=== PATIENT | female | born 1990 | race Caucasian/White ===

== ENCOUNTER 2018-07-12 16:57 | Emergency (ER) | payer MEDICAID ==
[~2018-07-12] VITALS: Ht 167.6 cm; Wt 70.3 kg
[~2018-07-12 16:57] MED LIST: RANI25TA
[2018-07-12 17:20] VITALS: BP 132/66
[2018-07-12] MEDS ORDERED: SODIUM CHLORIDE 0.9% 1,000 ML IV ONE (17:30)
[2018-07-12] MEDS ORDERED: cefTRIAXone 1GM/50ML D5W 50 ML IV ONE (17:30)
[2018-07-12 19:02] LABS: Urine Bacteria FEW /hpf (None Seen); Urine Blood Negative /uL (Negative); Urine Specific Gravity 1.007 (1.001-1.035); Urine WBC 21 /hpf (0 - 5)
== END 2018-07-12 18:31 | disposition home or self-care (01) ==
LOC: ER 16:57
DX: O23.41 Unspecified infection of urinary tract in pregnancy, first trimester (principal); Z3A.01 Less than 8 weeks gestation of pregnancy
CPT/HCPCS: 81001; 96365; 99283; J0696; J7030

== ENCOUNTER 2019-05-02 15:24 | Emergency (ER) | payer MEDICAID ==
[~2019-05-02] VITALS: Ht 167.6 cm; Wt 81.6 kg
[2019-05-02 16:38] VITALS: BP 130/73
== END 2019-05-02 17:27 | disposition home or self-care (01) ==
LOC: ER 15:24
DX: S39.012A Strain of muscle, fascia and tendon of lower back, initial encounter (principal); V49.59XA Passenger injured in collision with other motor vehicles in traffic accident, initial encounter; Y93.89 Activity, other specified; Y99.8 Other external cause status; Y92.89 Other specified places as the place of occurrence of the external cause

== ENCOUNTER 2020-09-12 18:25 | Emergency (ER) | payer MEDICAID ==
[~2020-09-12] VITALS: Ht 167.6 cm; Wt 74.8 kg
[2020-09-12 18:28] VITALS: BP 118/78
[2020-09-12] MEDS ORDERED: TETANUS-DIPTH-ACEL PERTUSSIS 0.5ML SYR Tdap IM ONE (21:30)
== END 2020-09-12 22:01 | disposition home or self-care (01) ==
LOC: ER 18:25
DX: S60.512A Abrasion of left hand, initial encounter (principal); W54.0XXA Bitten by dog, initial encounter; Y93.89 Activity, other specified; Y92.89 Other specified places as the place of occurrence of the external cause; Y99.8 Other external cause status
CPT/HCPCS: 90471; 90715